=== PATIENT | female | born 1945 | race Caucasian/White ===

== ENCOUNTER 2020-11-06 14:02 | Inpatient (IN) ==
[2020-11-06] MEDS ORDERED: ACETAMINOPHEN 1,000 MG/100 ML VIAL IV STA (14:59)
[2020-11-06] MEDS ORDERED: SODIUM CHLORIDE 0.9% 1000ML 1,000 ML IV SCH (15:00)
[2020-11-06] MEDS ORDERED: FAMOTIDINE 20MG IV PUSH 20 MG/5 ML SYR IV STA (15:03)
--- NOTE | 2020-11-06 15:33 | Emergency Department Note ---
Impression & Plan Lyme disease, Neutropenic fever, Thrombocytopenia, Elevated AST (SGOT) ED Provider Note NAME: HELLEN VELASCO AGE: 75 SEX: F ARRIVES VIA: Walk-In INFORMANT: Patient, ED PROVIDER(S): Adams Holcomb MD CHIEF COMPLAINT: Fever, abnormal labs, referred. PLAN: Disposition: Admit MEDICAL DECISION MAKING: The patient is a pleasant 75-year-old woman who presents to the emergency department referred by her PCP for ongoing generalized weakness, fevers and body aches that began approximately 5 days ago with negative Covid test performed o utpatient blood work showing platelets of 30K. Patient denies any symptoms of cough, congestion, vomiting, diarrhea or urinary symptoms. She denies any known COVID-19 exposures. He denies any known tick bites but both her admit they are out in the yard frequently doing yard work. On arrival the patient is fatigued appearing but no acute distress, afebrile with stable vital signs. She appears clinically dry. Lungs are clear. EKG without overt acute ischemia. CXR negative for acute cardiopulmonary process. WBC 3.14K with ANC 0.89. H/H wnl. Platelets 43K. Chemistry without acidosis. Lactate wnl. BUN/Cr > 20. Potassium 3.4. Electrolytes unremarkable. AST 65 and otherwise, LFTs without significant abnormality. Troponin negative/undetectable. Lipase 415, nonspecific. Lyme disease IgG positive and IgM Equivocal. Given TCP and transaminitis, there is also suspicion for possible Co-infection with anaplasmosis. Thus, will treat with Doxycycline. While the patient was afebrile in ED she does report fever to 101 yesterday. Given this additional Cefepime given empirically. Upon re-evaluation the patient did feel improved following IVF hydration and apap. However, still unwell. Given neutropenic fever, reasonable to proceed with admission for further management. The patient and her at the bedside were in agreement. Case was discussed with Lloyd Goff, with Dr. Jose Desai hospitalist who will evaluate the patient for admission. Triage Nursing notes reviewed and agree them. Prior medical records reviewed Vital Signs: reviewed and remarkable for no significant abnormalities Differential diagnosis: Viral syndrome, otitis, pharyngitis, pneumonia, influenza, meningitis, urinary tract infection, sepsis, bacteremia, as well as other pathologies. ER treatment provided: See below. Diagnostics interpreted by me: ECG: NSR, 71 bpm, no ectopy, no overt ST elevation or depression. Cardiac Monitoring: An order for continuous cardiac monitoring was placed and demonstrated NSR, 71 bpm, no ectopy. Laboratory studies: See below Imaging studies: See below Consultation(s): Case was discussed with Lloyd Goff, with Dr. Jose Desai hospitalist who will evaluate the patient for admission. HPI: The patient is a pleasant 75-year-old woman who presents to the emergency department referred by her PCP for ongoing generalized weakness, fevers and body aches that began approximately 5 days ago with negative Covid test performed outpatient blood work showing platelets of 30K. Patient denies any symptoms of cough, congestion, vomiting, diarrhea or urinary symptoms. She denies any known COVID-19 exposures. He denies any known tick bites but both her admit they are out in the yard frequently doing yard work. ROS: See above HPI for pertinent positives & negatives. A total of 10 systems reviewed and were otherwise negative. PAST MEDICAL HISTORY:See Below PAST SURGICAL HISTORY:See Below FAMILY HISTORY:See Below SOCIAL HISTORY:See Below HOME MEDICATIONS:See Below ALLERGIES:See Below VITALS:See Below PHYSICAL EXAMINATION: GENERAL: Awake, alert, fatigued-appearing, in no distress HENT: Normocephalic, atraumatic. Oropharynx with dry mucous membranes and otherwise unremarkable. EYES: Normal conjunctiva. Sclera non-icteric. NECK: Supple. No nuchal rigidity. FROM. No JVD. RESPIRATORY: Clear to auscultation. CARDIAC: Regular rate, normal rhythm. Extremities warm and well perfused. Pulses equal. ABDOMEN: Soft, non-distended. No tenderness to palpation. No rebound or guarding. No masses. RECTAL: Deferred. MUSCULOSKELETAL: Chest examination reveals no tenderness. The back is symmetrical on inspection without obvious abnormality. There is no CVA tenderness to palpation. No joint edema. LOWER EXTREMITIES: Calves are equal size bilaterally and non-tender. No edema. No discoloration. NEURO: Normal sensorium. No sensory or motor deficits noted. SKIN: No rash or jaundice noted. Adams Holcomb MD Past Med/Surg History Medical History Dyslipidemia HTN (hypertension) Hypothyroidism Surgical History No significant past surgical history Family History Brother Hypertension Mother Hypertension Father Hypertension Social History Smoking Status: Never smoker Second Hand Exposure: No; Do You Dip or Chew Tobacco: No; Tobacco Cessation Education Requested by Patient: No Hx Alcohol Use: Yes Alcohol type: wine Hx Substance Use: No Preferred Language: Malawian Communication Ability: Effective Child Center Assistant Required: No Beliefs That Will Affect Care: None Current Living Situation: Spouse Other Information That Helps Us Care for You: No Feels Safe at Home: Yes Safety Concerns: Feels Safe At This Time Assistive Devices: Walker Allergies Allergies Allergy/AdvReac Type Severity Reaction Status Date / Time No Known Allergies Allergy Verified 11/06/20 15:15 Home Meds Home Medications Medication Instructions Recorded Confirmed amlodipine 5 mg PO DAILY 11/06/20 11/06/20 ascorbic acid (vitamin C) [Vitamin 100 mg PO DAILY 11/06/20 11/06/20 C] cholecalciferol (vitamin D3) 25 mcg PO DAILY 11/06/20 11/06/20 [Vitamin D3] cyanocobalamin (vitamin B-12) 250 mcg PO DAILY 11/06/20 11/06/20 levothyroxine 75 mcg PO DAILYBB 11/06/20 11/06/20 meclizine 25 mg PO TID PRN 11/06/20 11/06/20 multivitamin 1 tab PO DAILY 11/06/20 11/06/20 Results & Data (ED) Vital Signs Vital Signs - 24 hr 11/06/20 14:04 11/06/20 14:44 11/06/20 14:46 Temperature 35.9 C L Temperature Source Temporal Artery Scan Pulse Rate 87 75 76 Pulse Rate from SpO2 Sensor 70 69 Pulse Rhythm Respiratory Rate 18 18 Respiratory Effort / Characteristics Non-Labored Respiratory Depth Normal Blood Pressure 104/65 117/73 Blood Pressure Mean 78 87 Pulse Oximetry 99 97 97 Oxygen Delivery Method Room Air Sepsis Recent Fever Within 48 Hours No Sepsis New/Unexplained Change in Mental Status No Sepsis Action Taken by Nursing No Action Required 11/06/20 15:00 11/06/20 15:01 11/06/20 15:30 Temperature Temperature Source Pulse Rate 77 74 69 Pulse Rate from SpO2 Sensor 71 74 Pulse Rhythm Respiratory Rate 16 18 19 Respiratory Effort / Characteristics Respiratory Depth Blood Pressure 114/77 118/75 Blood Pressure Mean 89 89 Pulse Oximetry 97 97 Oxygen Delivery Method Sepsis Recent Fever Within 48 Hours Sepsis New/Unexplained Change in Mental Status Sepsis Action Taken by Nursing 11/06/20 15:31 11/06/20 16:00 11/06/20 16:01 Temperature Temperature Source Pulse Rate 73 61 62 Pulse Rate from SpO2 Sensor 61 62 Pulse Rhythm Regular Respiratory Rate 19 14 14 Respiratory Effort / Characteristics Respiratory Depth Blood Pressure 107/64 Blood Pressure Mean 78 Pulse Oximetry 99 97 97 Oxygen Delivery Method Room Air Sepsis Recent Fever Within 48 Hours Sepsis New/Unexplained Change in Mental Status Sepsis Action Taken by Nursing 11/06/20 16:30 11/06/20 16:31 11/06/20 16:41 Temperature Temperature Source Pulse Rate 59 L 63 62 Pulse Rate from SpO2 Sensor 59 L 59 L 60 Pulse Rhythm Respiratory Rate 15 24 15 Respiratory Effort / Characteristics Respiratory Depth Blood Pressure 98/61 L 106/67 Blood Pressure Mean 73 80 Pulse Oximetry 97 97 98 Oxygen Delivery Method Sepsis Recent Fever Within 48 Hours Sepsis New/Unexplained Change in Mental Status Sepsis Action Taken by Nursing 11/06/20 17:00 11/06/20 17:01 11/06/20 17:28 Temperature 37.0 C Temperature Source Oral Pulse Rate 57 L 56 L Pulse Rate from SpO2 Sensor 57 L 56 L Pulse Rhythm Respiratory Rate 17 16 Respiratory Effort / Characteristics Respiratory Depth Blood Pressure 107/63 Blood Pressure Mean 77 Pulse Oximetry 97 97 Oxygen Delivery Method Sepsis Recent Fever Within 48 Hours Sepsis New/Unexplained Change in Mental Status Sepsis Action Taken by Nursing 11/06/20 17:30 11/06/20 17:34 11/06/20 17:53 Temperature Temperature Source Pulse Rate 61 63 61 Pulse Rate from SpO2 Sensor 61 59 L 61 Pulse Rhythm Respiratory Rate 19 17 16 Respiratory Effort / Characteristics Respiratory Depth Blood Pressure 91/59 L 94/63 L 101/62 Blood Pressure Mean 69 73 75 Pulse Oximetry 96 96 96 Oxygen Delivery Method Sepsis Recent Fever Within 48 Hours Sepsis New/Unexplained Change in Mental Status Sepsis Action Taken by Nursing 11/06/20 18:00 11/06/20 18:01 11/06/20 18:30 Temperature Temperature Source Pulse Rate 59 L 58 L 61 Pulse Rate from SpO2 Sensor 60 59 L 61 Pulse Rhythm Respiratory Rate 14 19 17 Respiratory Effort / Characteristics Respiratory Depth Blood Pressure 100/64 106/67 Blood Pressure Mean 76 80 Pulse Oximetry 96 95 97 Oxygen Delivery Method Sepsis Recent Fever Within 48 Hours Sepsis New/Unexplained Change in Mental Status Sepsis Action Taken by Nursing 11/06/20 18:31 Temperature Temperature Source Pulse Rate 63 Pulse Rate from SpO2 Sensor 63 Pulse Rhythm Respiratory Rate 16 Respiratory Effort / Characteristics Respiratory Depth Blood Pressure Blood Pressure Mean Pulse Oximetry 96 Oxygen Delivery Method Sepsis Recent Fever Within 48 Hours Sepsis New/Unexplained Change in Mental Status Sepsis Action Taken by Nursing Laboratory Data Attestation: I reviewed the patient's lab results. Result diagrams: 11/06/20 15:48 11/06/20 15:48 Lab Results 11/06/20 11/06/20 11/06/20 Range/Units 15:48 15:48 15:48 WBC 3.14 L (4.8-10.8) K/uL RBC 4.43 (4.2-5.4) M/uL Hgb 13.1 (12.0-16.0) g/dL Hct 37.6 (37-47) % MCV 84.9 (80-100) fL MCH 29.6 (25-34) pg MCHC 34.8 (32-36) g/dL RDW Std Deviation 39.7 (36.4-46.3) fL RDW Coeff of Blank 12.8 (11.5-14.5) % Plt Count 43 L (130-400) K/uL Neutrophils % (Manual) 28.4 % Lymphocytes % (Manual) 52.6 % Reactive Lymphs % (Man) 12.1 % Monocytes % (Manual) 6.9 % Neutrophils # (Manual) 0.89 L (1.4-6.5) K/uL Total Absolute Neuts 0.89 L* (1.4-6.5) K/uL Lymphocytes # (Manual) 1.65 (1.2-3.4) K/uL Reactive Lymphs # 0.38 K/uL Total Abs Lymphocytes 2.03 (1.2-3.4) K/uL Monocytes # (Manual) 0.22 (0.11-0.59) K/uL Giant Platelets 1+ Echinocytes 1+ PT 10.5 (9.0-12.0) Seconds INR 1.0 (0.9-1.1) APTT 22.8 (21.0-31.0) Seconds PTT Ratio 0.9 Sodium 136 (136-145) mmol/L Potassium 3.4 L (3.5-5.1) mmol/L Chloride 100 (98-107) mmol/L Carbon Dioxide 28 (21-32) mmol/L Anion Gap 8.0 (3-11) BUN 22 H (7-18) mg/dl Creatinine 0.97 (0.6-1.2) mg/dl Est Cr Clr Drug Dosing Not Reportable Est GFR ( Amer) 67.2 ml/min Est GFR (Non-Af Amer) 57.9 ml/min BUN/Creatinine Ratio 22.5 H (10-20) Glucose 90 (70-99) mg/dl Lactate (0.4-2.0) mmol/L Calcium 8.4 L (8.5-10.1) mg/dl Phosphorus 3.1 (2.5-4.9) mg/dl Magnesium 2.4 (1.8-2.4) mg/dl Total Bilirubin 0.6 (0.2-1) mg/dl Direct Bilirubin 0.2 (0-0.2) mg/dl AST 65 H (15-37) U/L ALT 26 (12-78) U/L Alkaline Phosphatase 72 (45-117) U/L Total Creatine Kinase 191 (26-192) U/L Troponin I < 0.015 (0-0.045) ng/ml Total Protein 6.8 (6.4-8.2) gm/dl Albumin 3.0 L (3.4-5.0) gm/dl Globulin 3.8 (2.5-4.0) gm/dl Albumin/Globulin Ratio 0.8 L (0.9-2) Lipase 415 H (73-393) U/L Anaplasma Smear See Comment Lyme Disease IgG Ab (Negative) Lyme Disease IgM Ab (Negative) COVID-19 Eval Order SARS-CoV-2 (PCR) (Negative) 11/06/20 11/06/20 11/06/20 Range/Units 15:48 15:48 16:22 WBC (4.8-10.8) K/uL RBC (4.2-5.4) M/uL Hgb (12.0-16.0) g/dL Hct (37-47) % MCV (80-100) fL MCH (25-34) pg MCHC (32-36) g/dL RDW Std Deviation (36.4-46.3) fL RDW Coeff of Blank (11.5-14.5) % Plt Count (130-400) K/uL Neutrophils % (Manual) % Lymphocytes % (Manual) % Reactive Lymphs % (Man) % Monocytes % (Manual) % Neutrophils # (Manual) (1.4-6.5) K/uL Total Absolute Neuts (1.4-6.5) K/uL Lymphocytes # (Manual) (1.2-3.4) K/uL Reactive Lymphs # K/uL Total Abs Lymphocytes (1.2-3.4) K/uL Monocytes # (Manual) (0.11-0.59) K/uL Giant Platelets Echinocytes PT (9.0-12.0) Seconds INR (0.9-1.1) APTT (21.0-31.0) Seconds PTT Ratio Sodium (136-145) mmol/L Potassium (3.5-5.1) mmol/L Chloride (98-107) mmol/L Carbon Dioxide (21-32) mmol/L Anion Gap (3-11) BUN (7-18) mg/dl Creatinine (0.6-1.2) mg/dl Est Cr Clr Drug Dosing Est GFR ( Amer) ml/min Est GFR (Non-Af Amer) ml/min BUN/Creatinine Ratio (10-20) Glucose (70-99) mg/dl Lactate 1.4 (0.4-2.0) mmol/L Calcium (8.5-10.1) mg/dl Phosphorus (2.5-4.9) mg/dl Magnesium (1.8-2.4) mg/dl Total Bilirubin (0.2-1) mg/dl Direct Bilirubin (0-0.2) mg/dl AST (15-37) U/L ALT (12-78) U/L Alkaline Phosphatase (45-117) U/L Total Creatine Kinase (26-192) U/L Troponin I (0-0.045) ng/ml Total Protein (6.4-8.2) gm/dl Albumin (3.4-5.0) gm/dl Globulin (2.5-4.0) gm/dl Albumin/Globulin Ratio (0.9-2) Lipase (73-393) U/L Anaplasma Smear Lyme Disease IgG Ab Positive A (Negative) Lyme Disease IgM Ab Equivocal A (Negative) COVID-19 Eval Order Covid19 at [facility] SARS-CoV-2 (PCR) (Negative) 11/06/20 Range/Units 16:22 WBC (4.8-10.8) K/uL RBC (4.2-5.4) M/uL Hgb (12.0-16.0) g/dL Hct (37-47) % MCV (80-100) fL MCH (25-34) pg MCHC (32-36) g/dL RDW Std Deviation (36.4-46.3) fL RDW Coeff of Blank (11.5-14.5) % Plt Count (130-400) K/uL Neutrophils % (Manual) % Lymphocytes % (Manual) % Reactive Lymphs % (Man) % Monocytes % (Manual) % Neutrophils # (Manual) (1.4-6.5) K/uL Total Absolute Neuts (1.4-6.5) K/uL Lymphocytes # (Manual) (1.2-3.4) K/uL Reactive Lymphs # K/uL Total Abs Lymphocytes (1.2-3.4) K/uL Monocytes # (Manual) (0.11-0.59) K/uL Giant Platelets Echinocytes PT (9.0-12.0) Seconds INR (0.9-1.1) APTT (21.0-31.0) Seconds PTT Ratio Sodium (136-145) mmol/L Potassium (3.5-5.1) mmol/L Chloride (98-107) mmol/L Carbon Dioxide (21-32) mmol/L Anion Gap (3-11) BUN (7-18) mg/dl Creatinine (0.6-1.2) mg/dl Est Cr Clr Drug Dosing Est GFR ( Amer) ml/min Est GFR (Non-Af Amer) ml/min BUN/Creatinine Ratio (10-20) Glucose (70-99) mg/dl Lactate (0.4-2.0) mmol/L Calcium (8.5-10.1) mg/dl Phosphorus (2.5-4.9) mg/dl Magnesium (1.8-2.4) mg/dl Total Bilirubin (0.2-1) mg/dl Direct Bilirubin (0-0.2) mg/dl AST (15-37) U/L ALT (12-78) U/L Alkaline Phosphatase (45-117) U/L Total Creatine Kinase (26-192) U/L Troponin I (0-0.045) ng/ml Total Protein (6.4-8.2) gm/dl Albumin (3.4-5.0) gm/dl Globulin (2.5-4.0) gm/dl Albumin/Globulin Ratio (0.9-2) Lipase (73-393) U/L Anaplasma Smear Lyme Disease IgG Ab (Negative) Lyme Disease IgM Ab (Negative) COVID-19 Eval Order SARS-CoV-2 (PCR) NEGATIVE (Negative) Administered Medications Sodium Chloride (Nss 1000ml) 1,000 mls @ 100 mls/hr IV .Q10H MALCOM Stop: 12/06/20 21:09 Last Admin: 11/06/20 21:10 Dose: 100 mls/hr Documented by: [id number] Discontinued Medications Sodium Chloride (Nss 1000ml) 1,000 mls @ 999 mls/hr IV .Q1H1M MALCOM Stop: 11/06/20 16:00 Last Infusion: 11/06/20 16:43 Dose: 0 mls/hr Documented by: [id number] Admin: 11/06/20 15:38 Dose: 999 mls/hr Documented by: [id number] Acetaminophen (Ofirmev) 1,000 mg in 100 mls @ 400 mls/hr IV NOW STA Stop: 11/06/20 15:13 Last Infusion: 11/06/20 16:27 Dose: 0 mls/hr Documented by: [id number] Admin: 11/06/20 15:38 Dose: 400 mls/hr Documented by: [id number] Famotidine (Pepcid 20mg Iv Push) 20 mg in 5 mls @ 2.5 mls/min IV NOW STA Stop: 11/06/20 15:04 Last Admin: 11/06/20 15:38 Dose: 2.5 mls/min Documented by: [id number] Cefepime HCl (Maxipime) 2,000 mg in 20 mls @ 5 mls/min IV NOW STA; Protocol Stop: 11/06/20 17:24 Last Admin: 11/06/20 17:30 Dose: 5 mls/min Documented by: [id number] Doxycycline Hyclate 100 mg/ (Dextrose) 110 mls @ 50 mls/hr IV NOW STA Stop: 11/06/20 19:32 Last Infusion: 11/06/20 20:54 Dose: 0 mls/hr Documented by: [id number] Admin: 11/06/20 17:55 Dose: 50 mls/hr Documented by: [id number] Potassium Chloride (Potassium Chloride Crtab 20 Meq Tabcr) 40 meq PO NOW STA Stop: 11/06/20 21:11 Last Admin: 11/06/20 22:05 Dose: 40 meq Documented by: [id number] Imaging Data Radiologist's Impression: Chest X-Ray 11/06/20 14:59 XR chest 1V portable CLINICAL HISTORY: Chest Pain COMPARISON STUDY: No previous studies for comparison. FINDINGS: Lung volumes are normal. Minimal linear left basilar opacity favors atelectasis. There is no pneumothorax or pleural effusion. Cardiac size is normal. Mediastinal contours are normal. There is no evidence for pulmonary edema. IMPRESSION: No acute cardiopulmonary findings. ACT 112: Negative or not required by law. Electronically signed by: Ford Frost M.D. 11/06/2020 4:10 PM Discharge Plan Visit Data Chief Complaint: Referred by Doctor Stated Complaint: VERTIGO ED Provider: Adams Holcomb Discharge Problem: Lyme disease, Neutropenic fever, Thrombocytopenia, Elevated AST (SGOT) Patient Disposition: Admitted As Inpatient Discharge Instructions Interventions: ED Discharge Assessment Last Done: 11/06/20 21:00
[2020-11-06 16:12] LABS: Partial Thromboplastin Ratio 0.9; Partial Thromboplastin Time 22.8 Seconds (21.0-31.0); Prothrombin Time 10.5 Seconds (9.0-12.0)
--- NOTE | 2020-11-06 16:12 | XRay Report ---
XR chest 1V portable CLINICAL HISTORY: Chest Pain COMPARISON STUDY: No previous studies for comparison. FINDINGS: Lung volumes are normal. Minimal linear left basilar opacity favors atelectasis. There is n o pneumothorax or pleural effusion. Cardiac size is normal. Mediastinal contours are normal. There is no evidence for pulmonary edema. IMPRESSION: No acute cardiopulmonary findings. ACT 112: Negative or not required by law. Electronically signed by: Ford Frost M.D. 11/06/2020 4:10 PM
[2020-11-06 16:34] LABS: BUN Creatinine Ratio 22.5 (10-20); Bilirubin Direct 0.2 mg/dl (0-0.2); Blood Urea Nitrogen 22 mg/dl (7-18); Calcium 8.4 mg/dl (8.5-10.1); Carbon Dioxide 28 mmol/L (21-32); Chloride 100 mmol/L (98-107); Est GFR (African American) 67.2 ml/min; Est GFR (Non-African American) 57.9 ml/min; Glucose 90 mg/dl (70-99); Lipase 415 U/L (73-393); Magnesium 2.4 mg/dl (1.8-2.4); Potassium 3.4 mmol/L (3.5-5.1); Sodium 136 mmol/L (136-145)
[2020-11-06 16:39] LABS: Alanine Aminotransferase 26 U/L (12-78); Albumin Globulin Ratio 0.8 (0.9-2); Alkaline Phosphatase 72 U/L (45-117); Aspartate Aminotransferase 65 U/L (15-37); Bilirubin,Total 0.6 mg/dl (0.2-1); Creatine Kinase 191 U/L (26-192); Globulin 3.8 gm/dl (2.5-4.0); Phosphorus 3.1 mg/dl (2.5-4.9); Total Protein 6.8 gm/dl (6.4-8.2); Troponin I < 0.015 ng/ml (0-0.045)
[2020-11-06 16:54] LABS: Hematocrit (blood only) 37.6 % (37-47); Hemoglobin 13.1 g/dL (12.0-16.0); Mean Corpuscular Hemoglobin 29.6 pg (25-34); Mean Corpuscular Hgb Conc 34.8 g/dL (32-36); Mean Corpuscular Volume 84.9 fL (80-100); Platelet Count 43 K/uL (130-400); RDW Coefficient of Variation 12.8 % (11.5-14.5); RDW Standard Deviation 39.7 fL (36.4-46.3); Red Blood Count 4.43 M/uL (4.2-5.4); White Blood Count 3.14 K/uL (4.8-10.8)
[2020-11-06 16:59] LABS: ALC (manual) 2.03 K/uL (1.2-3.4); ANC (manual) 0.89 K/uL (1.4-6.5); Echinocytes 1+; Giant Platelets 1+; Lymphocytes # (manual) 1.65 K/uL (1.2-3.4); Lymphocytes % (manual) 52.6 %; Monocytes # (manual) 0.22 K/uL (0.11-0.59); Monocytes % (manual) 6.9 %; Neutrophils # (manual) 0.89 K/uL (1.4-6.5); Neutrophils % (manual) 28.4 %; Reactive Lymphocytes # (manual) 0.38 K/uL; Reactive Lymphocytes % (manual) 12.1 %
[2020-11-06 17:07] LABS: Lyme Ab IgG w/WB Rflx Positive (Negative); Lyme Ab IgM w/WB Rflx Equivocal (Negative)
[2020-11-06] MEDS ORDERED: DOXYCYCLINE HYCLATE 100 MG in DEXTROSE 5% 100 ML IV STA (17:21)
[2020-11-06] MEDS ORDERED: CEFEPIME 2,000 MG/20 ML VIAL IV STA (17:21)
--- NOTE | 2020-11-06 19:57 | History & Physical Report ---
Date of Service November 06, 2020 Assessment & Plan (1) Lyme disease: -Admit to [facility] -Patient presenting from home with reports of generalized weakness, fever, dizziness. Outpatient labs showed leukopenia and thrombocytopenia. -In the ED, Lyme IgG positive w/ leukopenia/neutropenia, thrombocytopenia, elevated AST. Anaplasma smear negative however given other lab findings, suspicious for Anaplasma as well. Anaplasma PCR pending. -S/p cefepime and doxycycline in the ED. Continue doxycycline. -Continue supportive care -Follow labs (2) HTN (hypertension): -BP borderline low, hold amlodipine for now (3) Hypothyroidism: -Continue levothyroxine (4) DVT prophylaxis: -SCDs due to thrombocytopenia History of Present Illness Chief Complaint: Weakness, dizziness Primary Care Provider: Marlee Wills, 75-year-old female with PMH hypothyroidism, HTN, and other problems to below who presents to the ED for evaluation of generalized weakness and dizziness. Patient reports she has been feeling sick for about the past 1 week. Was seen at urgent care and diagnosed with vertigo and given as needed meclizine. Patient reports no improvement in her symptoms with taking the meclizine. She was seen by PCP yesterday and had labs drawn. Labs showed leukopenia and thrombocytopenia, therefore was patient was sent to the ED for further evaluation. Patient reports generalized malaise and very poor appetite. She also has been running fevers and having chills. Highest temp reported to be 102.5 with last fever being yesterday. No nausea, vomiting, abdominal pain, diarrhea. Denies chest pain or shortness of breath. No syncopal events. Denies urinary symptoms. In the ED, labs show WBC 3K, ANC 890, platelet 43k, AST 65. Lyme IgG positive. Anaplasma smear negative. Patient was given IV Tyl enol, IV cefepime, IV doxycycline, IV famotidine, IVF. Allergies Allergy/AdvReac Type Severity Reaction Status Date / Time No Known Allergies Allergy Verified 11/06/20 15:15 Home Medications Medication Instructions Recorded Confirmed Type amlodipine 5 mg PO DAILY 11/06/20 11/06/20 History ascorbic acid (vitamin C) [Vitamin 100 mg PO DAILY 11/06/20 11/06/20 History C] cholecalciferol (vitamin D3) 25 mcg PO DAILY 11/06/20 11/06/20 History [Vitamin D3] cyanocobalamin (vitamin B-12) 250 mcg PO DAILY 11/06/20 11/06/20 History levothyroxine 75 mcg PO DAILYBB 11/06/20 11/06/20 History meclizine 25 mg PO TID PRN 11/06/20 11/06/20 History multivitamin 1 tab PO DAILY 11/06/20 11/06/20 History Past Med/Surg History Medical History Dyslipidemia HTN (hypertension) Hypothyroidism Surgical History No significant past surgical history Family History Brother Hypertension Mother Hypertension Father Hypertension Social History Smoking Status: Never smoker Second Hand Exposure: No; Do You Dip or Chew Tobacco: No; Tobacco Cessation Education Requested by Patient: No Hx Alcohol Use: Yes Alcohol type: wine Hx Substance Use: No Preferred Language: [place] Communication Ability: Effective Muck Operator Required: No Beliefs That Will Affect Care: None Current Living Situation: Spouse Other Information That Helps Us Care for You: No Feels Safe at Home: Yes Safety Concerns: Feels Safe At This Time Assistive Devices: Walker Review of Systems Review of Systems: ROS per HPI, all other systems reviewed and negative Physical Exam Constitutional: WD/WN, vitals as above Eyes: PERRL, conjunctivae normal, anicteric sclerae ENMT: external ear and nose normal, oropharynx normal Respiratory: normal respiratory effort, lungs clear to auscultation Cardiovascular: Rate/Rhythm: regular rate and regular rhythm Vessels: normal peripheral pulses Extremities: no edema Gastrointestinal (Abdomen): normal bowel sounds, soft, nontender, no hepatosplenomegaly Musculoskeletal: no cyanosis or clubbing, extremities motor strength 5/5 Skin: no rashes, warm and dry Neurologic: PERRL, EOMI, accommodation nl, no face palsy, no dysarthria Psychiatric: A+Ox3, euthymic affect Results & Data Results & Data ([facility]) Vital Signs (Past 12 Hours) Vital Signs Temp Pulse Resp BP Pulse Ox 11/06/20 18:31 63 16 96 11/06/20 18:30 61 17 106/67 97 11/06/20 18:01 58 L 19 95 11/06/20 18:00 59 L 14 100/64 96 11/06/20 17:53 61 16 101/62 96 11/06/20 17:34 63 17 94/63 L 96 11/06/20 17:30 61 19 91/59 L 96 11/06/20 17:28 37.0 C 11/06/20 17:01 56 L 16 97 11/06/20 17:00 57 L 17 107/63 97 11/06/20 16:41 62 15 106/67 98 11/06/20 16:31 63 24 97 11/06/20 16:30 59 L 15 98/61 L 97 11/06/20 16:01 62 14 97 11/06/20 16:00 61 14 107/64 97 11/06/20 15:31 73 19 99 11/06/20 15:30 69 19 118/75 11/06/20 15:01 74 18 97 11/06/20 15:00 77 16 114/77 97 11/06/20 14:46 76 18 97 11/06/20 14:44 75 117/73 97 11/06/20 14:04 35.9 C L 87 18 104/65 99 Laboratory Results Short CBC 11/06/20 Range/Units 15:48 WBC 3.14 L (4.8-10.8) K/uL Hgb 13.1 (12.0-16.0) g/dL Hct 37.6 (37-47) % Plt Count 43 L (130-400) K/uL BMP 11/06/20 15:48 Sodium 136 Potassium 3.4 L Chloride 100 Carbon Dioxide 28 BUN 22 H Creatinine 0.97 Glucose 90 Calcium 8.4 L Cardiac Enzymes 11/06/20 Range/Units 15:48 Total Creatine Kinase 191 (26-192) U/L Troponin I < 0.015 (0-0.045) ng/ml Liver Function 11/06/20 Range/Units 15:48 Total Bilirubin 0.6 (0.2-1) mg/dl Direct Bilirubin 0.2 (0-0.2) mg/dl AST 65 H (15-37) U/L ALT 26 (12-78) U/L Alkaline Phosphatase 72 (45-117) U/L Albumin 3.0 L (3.4-5.0) gm/dl Diagnostic Findings Chest X-Ray 11/06/20 14:59 XR chest 1V portable CLINICAL HISTORY: Chest Pain COMPARISON STUDY: No previous studies for comparison. FINDINGS: Lung volumes are normal. Minimal linear left basilar opacity favors atelectasis. There is no pneumothorax or pleural effusion. Cardiac size is normal. Mediastinal contours are normal. There is no evidence for pulmonary edema. IMPRESSION: No acute cardiopulmonary findings. ACT 112: Negative or not required by law. Electronically signed by: Ford Frost M.D. 11/06/2020 4:10 PM Code Status & VTE Plan VTE Prophylaxis Plan VTE Prophylaxis will be ordered: Yes Supervising Physician Co-Signing Physician Notes Care coordinated with Gayatri Crabtree PA-C. Agree with above note. Patient seen and examined. Please refer to her notes for full details. Vital signs reviewed. Physical exam: General exam: Alert and oriented. Not in acute distress. CVS: S1 and S2 heard, regular rate and rhythm, no murmurs. RS: Clear to auscultation, no wheezing or crackles. ABD: Soft, bowel sounds present, nontender, no distention. 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 EXT: No edema, no erythema. Labs: Reviewed. Assessment and plan:75 f presents 5-7 days of not feeling well, dizziness, back ache, fevers out patinet labs showed leukopenia and thrombocytopenia and in Er lymse scree positive. Febrile illness tick borne Illness Lyme scree positive ANS smear negative but possible anaplasmosis with low platelets and transaminitis started on doxycyline. follow response. thrombocytopenia mostly from above follow repeat labs. Other diagnosis and plan of care as per Gayatri Crabtree PA-C. Emory saha MD.
[2020-11-06] MEDS ORDERED: POTASSIUM CHLORIDE CRTAB 20 MEQ TABCR PO STA (21:10)
[2020-11-06] MEDS ORDERED: ACETAMINOPHEN 325 MG TAB PO PRN (21:10)
[2020-11-06] MEDS: SODIUM CHLORIDE 0.9% 1000ML 1,000 ML IV SCH (21:10)
[2020-11-07] MEDS ORDERED: GABAPENTIN 100 MG CAP PO STA (05:45)
[2020-11-07] MEDS: DOXYCYCLINE HYCLATE 100 MG in DEXTROSE 5% 100 ML IV SCH ×2 (05:49→18:43)
[2020-11-07] MEDS: LEVOTHYROXINE SODIUM 75 MCG TABLET PO SCH (05:50)
[2020-11-07 06:41] LABS: Appearance Urine Clear (Clear); Bilirubin Urine Negative (Negative); Blood Urine Negative (Negative); Color Urine Yellow; Glucose Urine UA Negative (Negative); Ketones Urine Negative (Negative); Leukocyte Esterase Urine Negative (Negative); Nitrite Urine Negative (Negative); Protein Urine Negative (Negative); Specific Gravity Urine 1.016 (1.000-1.030); Urobilinogen Urine Negative (Negative)
[2020-11-07 07:14] LABS: Hematocrit (blood only) 34.1 % (37-47); Hemoglobin 11.6 g/dL (12.0-16.0); Mean Corpuscular Hemoglobin 29.9 pg (25-34); Mean Corpuscular Volume 87.9 fL (80-100); Mean Platelet Volume 12.6 fL (7.4-10.4); Platelet Count 61 K/uL (130-400); RDW Coefficient of Variation 13.1 % (11.5-14.5); RDW Standard Deviation 42.2 fL (36.4-46.3); Red Blood Count 3.88 M/uL (4.2-5.4); White Blood Count 5.09 K/uL (4.8-10.8)
[2020-11-07 07:50] LABS: Albumin Level 2.8 gm/dl (3.4-5.0); Calcium 8.3 mg/dl (8.5-10.1); Creatinine Clr Calc Pharmacy 61.6 ml/min; Est GFR (African American) 81.1 ml/min; Magnesium 2.1 mg/dl (1.8-2.4); Potassium 3.6 mmol/L (3.5-5.1)
[2020-11-07 07:52] LABS: Albumin Globulin Ratio 0.9 (0.9-2); Bilirubin,Total 0.5 mg/dl (0.2-1); Globulin 3.2 gm/dl (2.5-4.0)
[2020-11-07] MEDS: CHOLECALCIFEROL 1,000 UNITS 25 MCG TAB PO SCH (08:52)
[2020-11-07] MEDS: CYANOCOBALAMIN 500 MCG TABLET (VITAMIN B-12) PO SCH (08:52)
[2020-11-07] MEDS: SODIUM CHLORIDE 0.9% 1000ML 1,000 ML IV SCH (08:52)
--- NOTE | 2020-11-07 12:37 | Electrocardiogram Report ---
Test Reason : Blood Pressure : / mmHG Vent. Rate : 071 BPM Atrial Rate : 071 BPM P-R Int : 128 ms QRS Dur : 084 ms QT Int : 394 ms P-R-T Axes : -09 -12 037 degrees QTc Int : 428 ms Normal sinus rhythm Normal ECG No previous ECGs available Confirmed by Dung Warner ([id number]) on 11/07/2020 12:37:00 PM Referred By: REFERRED SELF Confirmed By:Omari Warner
--- NOTE | 2020-11-07 13:11 | Hospitalist Progress Note ---
Date of Service November 07, 2020 Assessment & Plan (1) Lyme disease: Presented from home with reports of generalized weakness, fever, dizziness. Also had leukopenia (WBC 3.14) and thrombocytopenia (platelet of 43) on admission In the ED, Lyme IgG positive w/ leukopenia/neutropenia, thrombocytopenia, elevated AST. Anaplasma smear negative Got cefepime and doxycycline in the ED. Continue doxycycline. Continue IVF Blood cultures in lab Leukopenia resolved. WBC improved to 5 today Platelet improving, 61 today (2) HTN (hypertension): BP borderline low on admission Continue to hold amlodipine BP currently normal Fall precautions (3) Hypothyroidism: Continue levothyroxine (4) DVT prophylaxis: SCDs due to thrombocytopenia Admission and Anticipated Discharge Date Admission Date: November 06, 2020 Subjective 75-year-old female with PMH hypothyroidism, HTN who presents to the ED for evaluation of generalized weakness, malaise, anorexia and dizziness for the past week Being managed for Lyme disease Patient seen and examined Still reports dizziness and weakness Reports feeling dehydrated Denied any cough, chest pain, shortness of breath Denied any dysuria, freq, urgency, hematuria Denied any nausea, vomiting, abd pain, diarrhea or constipation Review of Systems Review of Systems: All systems reviewed & are unremarkable except as noted in Subjective Physical Exam Constitutional: no acute distress Elderly woman Eyes: PERRL, conjunctivae normal, anicteric sclerae ENMT: external ear and nose normal, oropharynx normal Respiratory: normal respiratory effort, lungs clear to auscultation Cardiovascular: Rate/Rhythm: regular rate and regular rhythm S1 S2. No pedal edema Gastrointestinal (Abdomen): normal bowel sounds, soft, nontender, no hepatosplenomegaly Musculoskeletal: no cyanosis or clubbing, extremities motor strength 5/5 Neurologic: PERRL, EOMI, accommodation nl, no face palsy, no dysarthria Psychiatric: A+Ox3, euthymic affect Genitourinary: no CVA tenderness Results & Data Results & Data ([facility]) Vital Signs (Past 12 Hours) Vital Signs Temp Pulse Resp BP Pulse Ox 11/07/20 07:08 36.5 C 52 L 16 122/63 98 Laboratory Results Abnormal lab results 11/06/20 11/06/20 11/06/20 Range/Units 15:48 15:48 15:48 WBC 3.14 L (4.8-10.8) K/uL RBC (4.2-5.4) M/uL Hgb (12.0-16.0) g/dL Hct (37-47) % Plt Count 43 L (130-400) K/uL MPV (7.4-10.4) fL Neutrophils # (Manual) 0.89 L (1.4-6.5) K/uL Total Absolute Neuts 0.89 L* (1.4-6.5) K/uL Potassium 3.4 L (3.5-5.1) mmol/L BUN 22 H (7-18) mg/dl BUN/Creatinine Ratio 22.5 H (10-20) Calcium 8.4 L (8.5-10.1) mg/dl AST 65 H (15-37) U/L Total Protein (6.4-8.2) gm/dl Albumin 3.0 L (3.4-5.0) gm/dl Albumin/Globulin Ratio 0.8 L (0.9-2) Lipase 415 H (73-393) U/L Lyme Disease IgG Ab Positive A (Negative) Lyme Disease IgM Ab Equivocal A (Negative) 11/07/20 11/07/20 Range/Units 06:51 06:51 WBC (4.8-10.8) K/uL RBC 3.88 L (4.2-5.4) M/uL Hgb 11.6 L (12.0-16.0) g/dL Hct 34.1 L (37-47) % Plt Count 61 L (130-400) K/uL MPV 12.6 H (7.4-10.4) fL Neutrophils # (Manual) (1.4-6.5) K/uL Total Absolute Neuts (1.4-6.5) K/uL Potassium (3.5-5.1) mmol/L BUN 21 H (7-18) mg/dl BUN/Creatinine Ratio 25.0 H (10-20) Calcium 8.3 L (8.5-10.1) mg/dl AST 50 H (15-37) U/L Total Protein 6.0 L (6.4-8.2) gm/dl Albumin 2.8 L (3.4-5.0) gm/dl Albumin/Globulin Ratio (0.9-2) Lipase (73-393) U/L Lyme Disease IgG Ab (Negative) Lyme Disease IgM Ab (Negative)
[2020-11-08] MEDS ORDERED: cefTRIAXone SODIUM 2,000 MG in DEXTROSE 5% 50 ML IV SCH (03:50)
[2020-11-08] MEDS ORDERED: PIPERACILL/TAZOBAC CONSULT ACTIVE PRN (03:53)
[2020-11-08] MEDS ORDERED: PIPERACILLIN/TAZOBACTAM 3.375 GM in DEXTROSE 5% 100 ML IV SCH (05:00)
[2020-11-08] MEDS: LEVOTHYROXINE SODIUM 75 MCG TABLET PO SCH (05:20)
[2020-11-08 08:07] LABS: Hematocrit (blood only) 35.5 % (37-47); Hemoglobin 11.9 g/dL (12.0-16.0); Mean Corpuscular Hemoglobin 29.7 pg (25-34); Mean Corpuscular Hgb Conc 33.5 g/dL (32-36); Mean Corpuscular Volume 88.5 fL (80-100); Mean Platelet Volume 11.6 fL (7.4-10.4); Platelet Count 109 K/uL (130-400); RDW Coefficient of Variation 13.4 % (11.5-14.5); Red Blood Count 4.01 M/uL (4.2-5.4); White Blood Count 7.65 K/uL (4.8-10.8)
[2020-11-08 08:24] LABS: BUN Creatinine Ratio 17.1 (10-20); Calcium 8.8 mg/dl (8.5-10.1); Creatinine Clr Calc Pharmacy 63.1 ml/min; Est GFR (African American) 83.5 ml/min; Est GFR (Non-African American) 72.1 ml/min; Potassium 3.5 mmol/L (3.5-5.1)
--- NOTE | 2020-11-08 11:21 | Hospitalist Progress Note ---
Date of Service November 08, 2020 Assessment & Plan (1) Lyme disease: Presented from home with reports of generalized weakness, fever, dizziness. Also had leukopenia (WBC 3.14) and thrombocytopenia (platelet of 43) on admission In the ED, Lyme IgG positive w/ leukopenia/neutropenia, thrombocytopenia, elevated AST. Anaplasma smear negative Got cefepime and doxycycline in the ED. Continue doxycycline. Leukopenia resolved Platelet continues to improve, currently 109 However, one of the blood culture bottles is growing GPC. Got 1 dose of Zosyn by the dry sander Based on clinical improvement, my suspicion is that this is a contaminant. Will hold off further Zosyn at this time and repeat blood cultures If repeat blood cultures remain negative by tomorrow with continued clinical improvement, patient may be discharged tomorrow to complete doxycycline dose for Lyme disease (2) HTN (hypertension): BP borderline low on admission Continue to hold amlodipine BP currently normal Fall precautions (3) Hypothyroidism: Continue levothyroxine (4) DVT prophylaxis: SCDs due to thrombocytopenia Admission and Anticipated Discharge Date Admission Date: November 06, 2020 Subjective 75-year-old female with PMH hypothyroidism, HTN who presents to the ED for evaluation of generalized weakness, malaise, anorexia and dizziness for the past week Being managed for Lyme disease Patient seen and examined Patient reports dizziness is much improved today. Had some earlier on waking up but has resolved so far. Reports weakness is improving Denied any cough, chest pain, shortness of breath Denied any dysuria, freq, urgency, hematuria Denied any nausea, vomiting, abd pain, diarrhea or constipation Review of Systems Review of Systems: All systems reviewed & are unremarkable except as noted in Subjective Physical Exam Constitutional: no acute distress Eyes: PERRL, conjunctivae normal, anicteric sclerae ENMT: external ear and nose normal, oropharynx normal Respiratory: normal respiratory effort, lungs clear to auscultation Cardiovascular: Rate/Rhythm: regular rate and regular rhythm S1 S2 Gastrointestinal (Abdomen): normal bowel sounds, soft, nontender, no hepatosplenomegaly Musculoskeletal: no cyanosis or clubbing, extremities motor strength 5/5 Neurologic: PERRL, EOMI, accommodation nl, no face palsy, no dysarthria Psychiatric: A+Ox3, euthymic affect Genitourinary: no CVA tenderness Results & Data Results & Data ([facility]) Vital Signs (Past 12 Hours) Vital Signs Temp Pulse Resp BP Pulse Ox 11/08/20 09:03 36.6 C 58 L 18 128/80 99 Laboratory Results Abnormal lab results 11/08/20 11/08/20 Range/Units 07:11 07:11 RBC 4.01 L (4.2-5.4) M/uL Hgb 11.9 L (12.0-16.0) g/dL Hct 35.5 L (37-47) % Plt Count 109 L D (130-400) K/uL MPV 11.6 H (7.4-10.4) fL Chloride 109 H (98-107) mmol/L
[2020-11-08] MEDS: CYANOCOBALAMIN 500 MCG TABLET (VITAMIN B-12) PO SCH (13:00)
[2020-11-08] MEDS: CHOLECALCIFEROL 1,000 UNITS 25 MCG TAB PO SCH (13:01)
[2020-11-08] MEDS: DOXYCYCLINE HYCLATE 100 MG in DEXTROSE 5% 100 ML IV SCH (13:26)
[2020-11-09] MEDS: DOXYCYCLINE HYCLATE 100 MG in DEXTROSE 5% 100 ML IV SCH ×2 (01:49→14:02)
[2020-11-09] MEDS: LEVOTHYROXINE SODIUM 75 MCG TABLET PO SCH (06:14)
[2020-11-09 07:20] LABS: Hemoglobin 11.4 g/dL (12.0-16.0); Mean Corpuscular Hemoglobin 29.7 pg (25-34); Mean Corpuscular Hgb Conc 33.5 g/dL (32-36); Mean Corpuscular Volume 88.5 fL (80-100); Mean Platelet Volume 10.9 fL (7.4-10.4); Platelet Count 156 K/uL (130-400); RDW Coefficient of Variation 13.3 % (11.5-14.5); RDW Standard Deviation 43.6 fL (36.4-46.3); Red Blood Count 3.84 M/uL (4.2-5.4); White Blood Count 8.04 K/uL (4.8-10.8)
[2020-11-09] MEDS: CHOLECALCIFEROL 1,000 UNITS 25 MCG TAB PO SCH (07:46)
[2020-11-09] MEDS: CYANOCOBALAMIN 500 MCG TABLET (VITAMIN B-12) PO SCH (07:46)
[2020-11-09 07:55] LABS: BUN Creatinine Ratio 14.7 (10-20); Calcium 8.8 mg/dl (8.5-10.1); Creatinine Clr Calc Pharmacy 66.4 ml/min; Est GFR (African American) 88.8 ml/min; Est GFR (Non-African American) 76.6 ml/min; Potassium 3.8 mmol/L (3.5-5.1)
--- NOTE | 2020-11-09 15:37 | Discharge Summary ---
Date of Service November 09, 2020 Admission HPI Per Admitting Provider 75-year-old female with PMH hypothyroidism, HTN, and other problems to below who presents to the ED for evaluation of generalized weakness and dizziness. Patient reports she has been feeling sick for about the past 1 week. Was seen at urgent care and diagnosed with vertigo and given as needed meclizine. Patient reports no improvement in her symptoms with taking the meclizine. She was seen by PCP yesterday and had labs drawn. Labs showed leukopenia and thrombocytopenia, therefore was patient was sent to the ED for further evaluation. Patient reports generalized malaise and very poor appetite. She also has been running fevers and having chills. Highest temp reported to be 102.5 with last fever being yesterday. No nausea, vomiting, abdominal pain, diarrhea. Denies chest pain or shortness of breath. No syncopal events. Denies urinary symptoms. In the ED, labs show WBC 3K, ANC 890, platelet 43k, AST 65. Lyme IgG positive. Anaplasma smear negative. Patient was given IV Tylenol, IV cefepime, IV doxycycline, IV famotidine, IVF. Admission Exam Per Admitting Provider Constitutional: WD/WN, vitals as above Eyes: PERRL, conjunctivae normal, anicteric sclerae ENMT: external ear and nose normal, oropharynx normal Respiratory normal respiratory effort, lungs clear to auscultation Cardiovascular: Rate/Rhythm: regular rate and regular rhythm Vessels: normal peripheral pulses Extremities: no edema Gastrointestinal (Abdomen): normal bowel sounds, soft, nontender, no hepatosplenomegaly Musculoskeletal: no cyanosis or clubbing, extremities motor strength 5/5 Skin: no rashes, warm and dry Neurologic: PERRL, EOMI, accommodation nl, no face palsy, no dysarthria Psychiatric: A+Ox3, euthymic affect Principal Diagnosis Lyme disease Discharge Exam CONSTITUTIONAL: WNWD, vitals as above, generally well-appearing EYES: normal conjunctivae, no scleral icterus ENT: external ear and nose normal, MMM RESPIRATORY: clear to auscultation bilaterally, no crackles, rales or wheezes, normal respiratory effort CARDIOVASCULAR: regular rate and rhythm, S1 and 2 heard without murmurs, gallops or rubs, no JVD, no peripheral edema GASTROINTESTINAL: normal bowel sounds, soft, nontender, nondistended. MUSCULOSKELETAL: strength 5/5 throughout, head is normocephalic and atraumatic, ambulatory SKIN: warm and dry, no rashes NEUROLOGIC: CN 2-12 grossly intact, no sensory deficit, normal cognition, normal speech, no gross focal deficits PSYCHIATRIC: alert cooperative and oriented to person, place and time. Discharge Data Allergies Allergy/AdvReac Type Severity Reaction Status Date / Time No Known Allergies Allergy Verified 11/06/20 15:15 Consultations 11/06/20 18:59 ED Decision to Admit Stat Ordered Studies Laboratory Results WBC 8.04 K/uL (4.8-10.8) 11/09/20 06:48 RBC 3.84 M/uL (4.2-5.4) L 11/09/20 06:48 Hgb 11.4 g/dL (12.0-16.0) L 11/09/20 06:48 Hct 34.0 % (37-47) L 11/09/20 06:48 MCV 88.5 fL (80-100) 11/09/20 06:48 MCH 29.7 pg (25-34) 11/09/20 06:48 MCHC 33.5 g/dL (32-36) 11/09/20 06:48 RDW Std Deviation 43.6 fL (36.4-46.3) 11/09/20 06:48 RDW Coeff of Blank 13.3 % (11.5-14.5) 11/09/20 06:48 Plt Count 156 K/uL (130-400) 11/09/20 06:48 MPV 10.9 fL (7.4-10.4) H 11/09/20 06:48 Neutrophils % (Manual) 28.4 % 11/06/20 15:48 Lymphocytes % (Manual) 52.6 % 11/06/20 15:48 Reactive Lymphs % (Man) 12.1 % 11/06/20 15:48 Monocytes % (Manual) 6.9 % 11/06/20 15:48 Neutrophils # (Manual) 0.89 K/uL (1.4-6.5) L 11/06/20 15:48 Total Absolute Neuts 0.89 K/uL (1.4-6.5) L* 11/06/20 15:48 Lymphocytes # (Manual) 1.65 K/uL (1.2-3.4) 11/06/20 15:48 Reactive Lymphs # 0.38 K/uL 11/06/20 15:48 Total Abs Lymphocytes 2.03 K/uL (1.2-3.4) 11/06/20 15:48 Monocytes # (Manual) 0.22 K/uL (0.11-0.59) 11/06/20 15:48 Giant Platelets 1+ 11/06/20 15:48 Echinocytes 1+ 11/06/20 15:48 PT 10.5 Seconds (9.0-12.0) 11/06/20 15:48 INR 1.0 (0.9-1.1) 11/06/20 15:48 APTT 22.8 Seconds (21.0-31.0) 11/06/20 15:48 PTT Ratio 0.9 11/06/20 15:48 Sodium 141 mmol/L (136-145) 11/09/20 06:48 Potassium 3.8 mmol/L (3.5-5.1) 11/09/20 06:48 Chloride 110 mmol/L (98-107) H 11/09/20 06:48 Carbon Dioxide 25 mmol/L (21-32) 11/09/20 06:48 Anion Gap 6.0 (3-11) 11/09/20 06:48 BUN 11 mg/dl (7-18) 11/09/20 06:48 Creatinine 0.77 mg/dl (0.6-1.2) 11/09/20 06:48 Est Cr Clr Drug Dosing 66.4 ml/min 11/09/20 06:48 Est GFR ( Amer) 88.8 ml/min 11/09/20 06:48 Est GFR (Non-Af Amer) 76.6 ml/min 11/09/20 06:48 BUN/Creatinine Ratio 14.7 (10-20) 11/09/20 06:48 Glucose 87 mg/dl (70-99) 11/09/20 06:48 Lactate 1.4 mmol/L (0.4-2.0) 11/06/20 15:48 Calcium 8.8 mg/dl (8.5-10.1) 11/09/20 06:48 Phosphorus 3.1 mg/dl (2.5-4.9) 11/06/20 15:48 Magnesium 2.1 mg/dl (1.8-2.4) 11/07/20 06:51 Total Bilirubin 0.5 mg/dl (0.2-1) 11/07/20 06:51 Direct Bilirubin 0.2 mg/dl (0-0.2) 11/06/20 15:48 AST 50 U/L (15-37) H 11/07/20 06:51 ALT 22 U/L (12-78) 11/07/20 06:51 Alkaline Phosphatase 62 U/L (45-117) 11/07/20 06:51 Total Creatine Kinase 191 U/L (26-192) 11/06/20 15:48 Troponin I < 0.015 ng/ml (0-0.045) 11/06/20 15:48 Total Protein 6.0 gm/dl (6.4-8.2) L 11/07/20 06:51 Albumin 2.8 gm/dl (3.4-5.0) L 11/07/20 06:51 Globulin 3.2 gm/dl (2.5-4.0) 11/07/20 06:51 Albumin/Globulin Ratio 0.9 (0.9-2) 11/07/20 06:51 Lipase 415 U/L (73-393) H 11/06/20 15:48 Urine Color Yellow 11/07/20 Unknown Urine Appearance Clear (Clear) 11/07/20 Unknown Urine pH 6.0 (4.5-7.5) 11/07/20 Unknown Ur Specific [place] 1.016 (1.000-1.030) 11/07/20 Unknown Urine Protein Negative (Negative) 11/07/20 Unknown Urine Glucose (UA) Negative (Negative) 11/07/20 Unknown Urine Ketones Negative (Negative) 11/07/20 Unknown Urine Blood Negative (Negative) 11/07/20 Unknown Urine Nitrite Negative (Negative) 11/07/20 Unknown Urine Bilirubin Negative (Negative) 11/07/20 Unknown Urine Urobilinogen Negative (Negative) 11/07/20 Unknown Ur Leukocyte Esterase Negative (Negative) 11/07/20 Unknown Anaplasma Smear See Comment 11/06/20 15:48 Lyme Disease IgG Ab Positive (Negative) A 11/06/20 15:48 Lyme Disease IgM Ab Equivocal (Negative) A 11/06/20 15:48 COVID-19 Eval Order Covid19 at [facility] 11/06/20 16:22 SARS-CoV-2 (PCR) NEGATIVE (Negative) 11/06/20 16:22 Hepatitis C Ab Screen Neg (Neg) 11/06/20 15:48 Impressions Chest X-Ray 11/06/20 14:59 XR chest 1V portable CLINICAL HISTORY: Chest Pain COMPARISON STUDY: No previous studies for comparison. FINDINGS: Lung volumes are normal. Minimal linear left basilar opacity favors atelectasis. There is no pneumothorax or pleural effusion. Cardiac size is normal. Mediastinal contours are normal. There is no evidence for pulmonary edema. IMPRESSION: No acute cardiopulmonary findings. ACT 112: Negative or not required by law. Electronically signed by: Ford Frost M.D. 11/06/2020 4:10 PM Hospital Course (1) Lyme disease: The patient is a 75-year-old female who presented to the emergency department for ongoing generalized weakness fevers and body aches that presented 5 days prior to arrival. Work-up revealed thrombocytopenia and clinically her presentation was consistent with a rickettsial illness. White blood cell count was 3.14 with an ANC of 0.89. Hemoglobin and hematocrit was normal, platelets on admission were 40 3K, chemistry without acidosis, lactate within normal limits, normal renal function, potassium 3.4, electrolytes unremarkable. AST was 65 and otherwise LFTs were without significant abnormality. Troponin was negative, lipase 415. Her Lyme panel was positive for IgG and equivocal for IgM. Although she was afebrile on arrival she had reported a recent fever of 101 Fahrenheit the day prior. Out of concern for neutropenic fever, she was admitted to the hospitalist service and started on cefepime and doxycycline. Coinfection with Anaplasma was also possible and Anaplasma PCR was pending at time of discharge. Western blot for Lyme panel was also pending at time of discharge. These can be followed up as outpatient with primary care provider. She improved clinically on doxycycline and a third-generation cephalosporin (cefepime was switched to ceftriaxone during her hospital stay). White blood cell count improved to 8.04, platelet count improved from 40 3K to 156. Overall she felt clinically better with antibiotic therapy and was discharged home in stable condition. At time of discharge she still reported some lightheadedness that did not impede her ability to function or walk. She did not have any evidence of erythema migrans or eschar present on her skin exam that can be seen. She was hemodynamically stable and afebrile and tolerating p.o. She was mentating and ambulating at baseline and oxygenating well on room air. She was sent home in stable condition with close primary care follow-up recommended. A total 21-day course of doxycycline was prescribed. Also of note blood culture results from the ER on 11/06 revealed 1 of 4 bottles positive for bacillus species not anthracis, which is felt to be a contaminant. Repeat blood cultures were negative at the time of discharge with final readings pending. All results were discussed with the patient and her who was at the bedside. Total Time Total Time Spent Total Time Spent (In Minutes): 60 Total Time Includes: Examination of the Patient, Discharge Planning, Medication Reconciliation and Communication With Other Providers Discharge Plan Discharge Items Patient Disposition: Home - Self-Care Reason For Visit: LYME DISEASE Discharge Diagnosis: Lyme disease Condition on Discharge: Good Activity: Resume your previous activity Non-emergency contact: Primary Care Provider Call non-emergency contact if: you have any medication questions, your symptoms worsen, your pain is not controlled, your pain is worsening, your pain is unusual for you, your pain is concerning for you and you have a fever Follow-up/Referrals: Marlee Wills DO [Primary Care Provider] - (Date & Time 11/15/2020 3:00 PM Provider Marlee Wills DO Department [facility] ) Diet: Regular Addtl Attending Provider Instructions: Please take all medications as instructed on discharge list below. Please take the doxycycline with food and do not take it within two hours of other medications or supplements. It is recommended that you follow-up with your primary care physician at the date and time above to ensure you are still doing well after discharge home. It was a pleasure taking care of you! Please call if you have any questions or problems. You can reach a [facility] hospitalist on duty at [facility] 24 hours a day by calling [phone]. Take care of yourself. Viola Garcia DO [facility] Hospitalist Pending Studies at Discharge: Yes Studies:: Lyme western blot pending at discharge. Finalized blood cultures pending at discharge. Stand-Alone Forms: My [facility] Medications and DC Order Prescriptions: New doxycycline hyclate 100 mg tablet 100 mg PO BID Qty: 38 RF: 0 Continued amlodipine 5 mg tablet 5 mg PO DAILY RF: 0 levothyroxine 75 mcg tablet 75 mcg PO DAILYBB RF: 0 meclizine 25 mg tablet 25 mg PO TID PRN (Reason: Dizziness) RF: 0 multivitamin Tablet 1 tab PO DAILY RF: 0 cyanocobalamin (vitamin B-12) 250 mcg Tablet 250 mcg PO DAILY RF: 0 Vitamin C 100 mg Tablet 100 mg PO DAILY RF: 0 cholecalciferol (vitamin D3) [Vitamin D3] 25 mcg (1,000 unit) Capsule 25 mcg PO DAILY RF: 0 Discharge Orders: Discharge Order (Routine); Ordered 11/09/20 Ordered By: Viola Garcia Admission Data Admit Date/Time: 11/06/20 19:02 Attending Provider: Viola Garcia Admit Provider: Emory Marshall Primary Care Provider: Marlee Wills Other Providers: Concetta Garcia ; Emory Marshall
[2020-11-10 16:31] LABS: 18KDIGG Band REACTIVE; 23KDIGG Band REACTIVE; 23KDIGM Band NON-REACTIVE; 28KDIGG Band REACTIVE; 30KDIGG Band REACTIVE; 39KDIGG Band REACTIVE; 39KDIGM Band REACTIVE; 41KDIGG Band REACTIVE; 41KDIGM Band NON-REACTIVE; 45KDIGG Band REACTIVE; 58KDIGG Band REACTIVE; 66KDIGG Band REACTIVE; 93KDIGG Band REACTIVE; Lyme Antibodies, WB IgG POSITIVE (NEGATIVE); Lyme Antibodies, WB IgM NEGATIVE (NEGATIVE)
== END 2020-11-09 16:15 | disposition home or self-care (01) | DRG 869 ==
LOC: ED 14:02 → 3W 19:02 → SUATTDRO 19:02 → 3W 21:00